=== PATIENT | male | born 1965 | race Caucasian/White ===

== ENCOUNTER 2016-08-14 17:49 | Emergency (ER) | payer OTHER ==
[2014-12-07 22:29] VITALS: BMI 33.2
[~2016-08-14 17:49] MED LIST: AMBIEN5 MG PO; BAYER CHEWABLE81 MG PO; BRILINTA90 MG PO; COREG 3.1253.125 MG PO; COREG6.25 MG; COREG6.25 MG PO; HEMOCYTE PLUS C1 CAP PO; HYDROCODONE-APA1 TAB PO; IMDUR30 MG PO; K-DUR20 MEQ PO; MICARDIS40 MG PO; PLAVIX75 MG PO; PRAVACHOL20 MG PO; PREDNISONE20 MG PO; TRICOR48 MG PO; XANAX0.5 MG PO; ZETIA10 MG PO
[2016-08-14 19:05] LABS: APPEARANCE CLEAR (CLEAR); BILIRUBIN NEGATIVE (NEGATIVE); COLOR YELLOW (YELLOW); GLUCOSE NEGATIVE (NEGATIVE); KETONE NEGATIVE (NEGATIVE); LEUKOCYTE ESTERASE NEGATIVE (NEGATIVE); NITRITE NEGATIVE (NEGATIVE); PROTEIN NEGATIVE (NEGATIVE); SPECIFIC GRAVITY 1.025 (1.005-1.020); UROBILINOGEN NORMAL (NORMAL)
== END 2016-08-14 21:15 | disposition home or self-care (01) ==
LOC: D.ER 17:49
PROVIDERS: Emergency Medicine
DX: S39.012A Strain of muscle, fascia and tendon of lower back, initial encounter (principal); X50.0XXA Overexertion from strenuous movement or load, initial encounter; X50.9XXA Other and unspecified overexertion or strenuous movements or postures, initial encounter; Y93.89 Activity, other specified; Y92.89 Other specified places as the place of occurrence of the external cause; I25.10 Atherosclerotic heart disease of native coronary artery without angina pectoris; I10 Essential (primary) hypertension